=== PATIENT | female | born 1985 | race Caucasian/White ===

== ENCOUNTER 2018-08-23 10:19 | Emergency (ER) | payer BC ==
[2018-08-23 10:26] VITALS: BP 136/69
[2018-08-23 10:57] LABS: CHLORIDE,CL 105 mmol/L (98-107); SODIUM,NA 141 mmol/L (136-145)
[2018-08-23] MEDS: Albuterol/Ipratropium 3.0-0.5 MG/3 ML Neb Soln NEB ONE ×2 (11:19→12:54)
[2018-08-23] MEDS ORDERED: Sodium Chloride 0.9% 10 ML Syringe FLUSH PRN (11:31)
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
[2018-08-23] MEDS: Sodium Chloride 0.9% 1,000 ML IV ONE (11:54)
[2018-08-23] MEDS: methylPREDNISolone Sodium Succinate 125 MG/2 ML SDV IVPUSH ONE (11:55)
== END 2018-08-23 13:20 | disposition home or self-care (01) ==
LOC: LL.ED 10:19
DX: J45.901 Unspecified asthma with (acute) exacerbation (principal); L03.115 Cellulitis of right lower limb; J20.9 Acute bronchitis, unspecified; F32.9 Major depressive disorder, single episode, unspecified; Z88.0 Allergy status to penicillin; Z91.040 Latex allergy status; Z79.899 Other long term (current) drug therapy
CPT/HCPCS: 36415; 71046; 80048; 85025; 94640; 96361; 96374; 99283; J2930; J7030; J7620-GY

== ENCOUNTER 2021-04-27 07:48 | Emergency (ER) | payer BC ==
[2021-04-27 08:17] VITALS: BP 118/73
[2021-04-27] MEDS ORDERED: Ketorolac 60 MG/2 ML SDV IM ONE (08:33)
[2021-04-27] MEDS ORDERED: Ondansetron 4 MG Tab.DIS PO ONE (08:33)
[2021-04-27 08:43] LABS: CORONAVIRUS COVID-19 NAA POSITIVE (NEGATIVE); RESPIRATORY SYNCYTIAL VIR NAA NEGATIVE (NEGATIVE)
[2021-04-27 08:52] LABS: CHLORIDE,CL 102 mmol/L (98-107); SODIUM,NA 135 mmol/L (136-145)
[2021-04-27 08:56] LABS: ANION GAP 17.9 meq/L (7-15)
[2021-04-27 09:47] VITALS: PULSE 98
== END 2021-04-27 09:15 | disposition home or self-care (01) ==
LOC: LL.ED 07:48
DX: U07.1 COVID-19 (principal); E66.9 Obesity, unspecified; Z72.0 Tobacco use; Z88.0 Allergy status to penicillin; Z91.040 Latex allergy status
CPT/HCPCS: 0241U; 36415; 80053; 85025; 87081; 87430; 96372; 99284; A9270-GY; J1885

== ENCOUNTER 2023-10-01 14:26 | Emergency (ER) | payer BC, OTHER ==
[2023-10-01 15:07] LABS: BASOPHILS ABSOLUTE AUTO 0.04 K/uL (0.00-0.20); BASOPHILS PERCENT AUTO 0.4 % (0.0-2.0); EOSINOPHILS ABSOLUTE AUTO 0.27 K/uL (0.00-0.50); EOSINOPHILS PERCENT AUTO 2.8 % (0.0-5.0); HEMOGLOBIN 14.3 g/dL (11.7-15.5); LYMPHOCYTES PERCENT AUTO 25.1 % (10.0-50.0); MEAN CORPUSCULAR HEMOGLOBIN 31.4 pg (28.2-33.3); MEAN CORPUSCULAR VOLUME 92.3 fL (84.0-98.0); MONOCYTES ABSOLUTE AUTO 0.78 K/uL (0.00-1.00); MONOCYTES PERCENT AUTO 8.2 % (2.0-14.0); NEUTROPHILS ABSOLUTE AUTO 6.08 K/uL (1.40-7.00); NEUTROPHILS PERCENT AUTO 63.5 % (45.0-80.0); PLATELET COUNT,PLT 308 K/uL (150-350); RED BLOOD CELL COUNT 4.55 M/uL (3.77-5.09); RED CELL DISTRIBUTION WIDTH 13.4 % (11.2-14.1); WHITE BLOOD CELL COUNT,WBC 9.6 K/uL (4.0-10.2)
[2023-10-01 15:31] LABS: ALANINE AMINOTRANSFERASE,ALT 25 U/L (12-78); ALBUMIN 3.4 g/dL (3.4-5.0); ALKALINE PHOSPHATASE 81 IU/L (46-116); ANION GAP 11.3 meq/L (7-15); ASPARTATE AMNIOTRANSFERASE,AST 13 U/L (15-37); BILIRUBIN TOTAL 0.5 mg/dL (0.2-1.0); BLOOD UREA NITROGEN,BUN 12 mg/dL (7-18); C-REACTIVE PROTEIN 0.85 mg/dL (0.05-0.30); CALCIUM 8.5 mg/dL (8.5-10.1); CARBON DIOXIDE,CO2 22.7 mmol/L (21.0-32.0); CHLORIDE,CL 106 mmol/L (98-107); CREATININE 0.94 mg/dL (0.51-1.17); ESTIMATED GFR 80 mL/min (>=60); GLUCOSE RANDOM 101 mg/dL (70-99); POTASSIUM,K 4.1 mmol/L (3.5-5.1); PROTEIN TOTAL,TP 6.9 g/dL (6.4-8.2); SODIUM,NA 140 mmol/L (136-145)
[2023-10-01 16:19] VITALS: BP 113/88; PULSE 67
== END 2023-10-01 16:32 | disposition home or self-care (01) ==
LOC: LL.ED 14:26
DX: I83.12 Varicose veins of left lower extremity with inflammation (principal); I83.11 Varicose veins of right lower extremity with inflammation; E66.9 Obesity, unspecified; Z88.0 Allergy status to penicillin; Z91.040 Latex allergy status; Z79.899 Other long term (current) drug therapy
CPT/HCPCS: 36415; 80053; 85025; 85379; 86140; 99283

== ENCOUNTER 2023-10-06 00:09 | Emergency (ER) | payer OTHER ==
[2023-10-06] MEDS: Ondansetron 4 MG Tab.DIS PO ONE (00:52)
== END 2023-10-06 01:00 ==
LOC: LL.ED 00:09
DX: I82.402 Acute embolism and thrombosis of unspecified deep veins of left lower extremity (principal); F17.210 Nicotine dependence, cigarettes, uncomplicated; K21.9 Gastro-esophageal reflux disease without esophagitis; Z91.040 Latex allergy status; Z88.0 Allergy status to penicillin; Z79.899 Other long term (current) drug therapy
CPT/HCPCS: 99284; A9270-GY

== ENCOUNTER 2024-06-08 20:32 | Emergency (ER) | payer BC, OTHER ==
[2024-06-08 20:55] LABS: BASOPHILS ABSOLUTE AUTO 0.02 K/uL (0.00-0.20); BASOPHILS PERCENT AUTO 0.3 % (0.0-2.0); EOSINOPHILS ABSOLUTE AUTO 0.12 K/uL (0.00-0.50); EOSINOPHILS PERCENT AUTO 1.8 % (0.0-5.0); HEMATOCRIT 41.4 % (34.0-46.0); IMMATURE GRAN ABSOLUTE AUTO 0.01 10^3/uL (0.00-0.04); IMMATURE GRAN PERCENT AUTO 0.2 % (0.0-0.4); LYMPHOCYTES ABSOLUTE AUTO 1.46 K/uL (0.50-3.50); LYMPHOCYTES PERCENT AUTO 22.3 % (10.0-50.0); MEAN CORPUSCULAR HEMOGLOBIN 30.7 pg (28.2-33.3); MEAN CORPUSCULAR HGB CONC 33.8 g/dL (31.7-36.0); MEAN CORPUSCULAR VOLUME 90.8 fL (84.0-98.0); MONOCYTES ABSOLUTE AUTO 0.69 K/uL (0.00-1.00); MONOCYTES PERCENT AUTO 10.5 % (2.0-14.0); NEUTROPHILS ABSOLUTE AUTO 4.25 K/uL (1.40-7.00); NEUTROPHILS PERCENT AUTO 64.9 % (45.0-80.0); PLATELET COUNT,PLT 248 K/uL (150-350); RED BLOOD CELL COUNT 4.56 M/uL (3.77-5.09); RED CELL DISTRIBUTION WIDTH 13.2 % (11.2-14.1); WHITE BLOOD CELL COUNT,WBC 6.6 K/uL (4.0-10.2)
[2024-06-08] MEDS: Ketorolac 30 MG/ML SDV IVPUSH ONE (21:12)
[2024-06-08] MEDS: Albuterol/Ipratropium 3.0-0.5 MG/3 ML Neb Soln NEB ONE (21:12)
[2024-06-08] MEDS: methylPREDNISolone Sodium Succinate 40 MG/1 ML SDV IVPUSH ONE (21:12)
[2024-06-08] MEDS: Sodium Chloride 0.9% 1,000 ML IV SCH (21:13)
[2024-06-08 21:18] LABS: LACTIC ACID 1.8 mmol/L (0.4-2.0)
[2024-06-08 21:24] LABS: ALANINE AMINOTRANSFERASE,ALT 25 U/L (12-78); ALBUMIN 3.2 g/dL (3.4-5.0); ALKALINE PHOSPHATASE 74 IU/L (46-116); ANION GAP 16.5 meq/L (7-15); ASPARTATE AMNIOTRANSFERASE,AST 22 U/L (15-37); BILIRUBIN TOTAL 0.2 mg/dL (0.2-1.0); BLOOD UREA NITROGEN,BUN 6 mg/dL (7-18); CALCIUM 8.5 mg/dL (8.5-10.1); CARBON DIOXIDE,CO2 20.3 mmol/L (21.0-32.0); CHLORIDE,CL 103 mmol/L (98-107); CREATININE 0.89 mg/dL (0.51-1.17); ESTIMATED GFR 86 mL/min (>=60); GLUCOSE RANDOM 112 mg/dL (70-99); POTASSIUM,K 3.8 mmol/L (3.5-5.1); PROTEIN TOTAL,TP 6.8 g/dL (6.4-8.2); SODIUM,NA 136 mmol/L (136-145)
[2024-06-08 21:31] LABS: PROTHROMBIN TIME 10.2 SEC (9.0-11.1); PTT,PARTIAL THROMBOPLSTIN TIME 30.2 SEC (23.8-34.4)
[2024-06-08] MEDS ORDERED: Azithromycin 500 MG Vial ONE (21:56)
[2024-06-08] MEDS: cefTRIAXone 2 GM Vial IVPUSH ONE (22:04)
[2024-06-08] MEDS: Iopamidol 755 Mg/ML 100 ML Bottle IVPUSH ONE (22:05)
[2024-06-08] MEDS: Azithromycin 500 MG in Sodium Chloride 0.9% 250 ML IV ONE (22:11)
[2024-06-08] MEDS: Sodium Chloride 0.9% 10 ML Syringe FLUSH PRN (22:14)
== END 2024-06-08 23:48 | disposition home or self-care (01) ==
LOC: LL.ED 20:32
DX: J18.9 Pneumonia, unspecified organism (principal); R79.89 Other specified abnormal findings of blood chemistry; F17.210 Nicotine dependence, cigarettes, uncomplicated; Z88.0 Allergy status to penicillin; Z91.040 Latex allergy status; Z79.899 Other long term (current) drug therapy
CPT/HCPCS: 36415; 71046; 71275; 80053; 83605; 85025; 85379; 85610; 85730; 87428-QW; 94640; 96361; 96365; 96375; 99285-25; A9270-GY; J0456; J0696; J1885; J2919; J7030; Q9967

== ENCOUNTER 2025-01-09 14:35 | Emergency (ER) | payer BC ==
[2025-01-09] MEDS: Bacitracin/Neomycin/Polymyxin B Oint 0.9 GM U/D Packet TOP ONE (14:57)
[2025-01-09] MEDS: Diphtheria,Pertussis(Acell),Tetanus Vaccine 0.5 ML Syringe IM ONE (15:12)
== END 2025-01-09 15:30 | disposition home or self-care (01) ==
LOC: SUPCPDRO 14:35 → LL.ED 14:35
DX: S71.111A Laceration without foreign body, right thigh, initial encounter (principal); E66.9 Obesity, unspecified; Z88.0 Allergy status to penicillin; Z88.1 Allergy status to other antibiotic agents; Z91.040 Latex allergy status; Z23 Encounter for immunization; Z68.33 Body mass index [BMI] 33.0-33.9, adult; X58.XXXA Exposure to other specified factors, initial encounter
CPT/HCPCS: 12005; 90471; 90715; 99282; J2003